=== PATIENT | male | born 1955 | race Caucasian/White ===

== ENCOUNTER → 2023-04-23 11:26 | Outpatient (BNVA) | payer MEDICARE, SELFPAY | PROVIDERS: PCP Family Medicine; Visit Provider Internal Medicine Cardiovascular Disease | DX: R07.9 Chest pain, unspecified (principal); I25.118 Atherosclerotic heart disease of native coronary artery with other forms of angina pectoris; R06.02 Shortness of breath; I45.10 Unspecified right bundle-branch block; Z95.0 Presence of cardiac pacemaker; J44.9 Chronic obstructive pulmonary disease, unspecified; E78.5 Hyperlipidemia, unspecified; E11.9 Type 2 diabetes mellitus without complications; I65.29 Occlusion and stenosis of unspecified carotid artery | CPT/HCPCS: 93005; 99205 ==

== ENCOUNTER 2023-05-09 06:01 | Outpatient (CLI) | payer MEDICARE, MEDICAID, SELFPAY ==
--- NOTE | 2023-05-09 06:15 | USCV_ITS ---
Britton Yunier Age: 67 Gender: M : 1955 Exam Date: 05/09/2023 06:34 Ordering Phys: Charli Parks MD ([email or web address]) Technologist: RENETTA Exam Location: [facility] [place] Indication: Bruit Risk Factors: Unknown Previous Vascular Surgery: STENTS AND PACER Right Brachial BP: / Left Brachial BP: / Right Left Velocity (cm/s) Spectral Plaque Velocity (cm/s) Spectral Plaque Syst/Diast Broadening Syst/Diast Broadening 100.30/32.00 Prox CCA 83.90 / 28.40 79.40/ 19.80 Mid CCA 62.50 / 18.30 93.50/ 27.00 Distal CCA 52.10 / 12.90 77.30/ 26.10 Hetro Prox ICA 108.20/ 36.40 Hetro 71.00/ 23.40 Mid ICA 108.20/ 36.40 54.40/ 19.80 Distal ICA 63.30 / 18.80 160.10 ECA 77.90 0.97 ICA/CCA 1.73 Antegrade Vertebral Antegrade 51.10/ 16.50 cm/s 43.90/ 14.40 cm/s Bi Subclavian Bi 107.7 115.0 0 0 FINDINGS Moderate heterogenous irregular plaques at the bifurcations and proximal internal carotid arteries bilaterally Intimal thickening in the common carotid arteries bilaterally. Antegrade flow in the vertebral arteries bilaterally. Normal Doppler velocities in the subclavian and vertebral arteries Elevated Doppler flow velocity with, color flow turbulence at the proximal external carotid artery on the right side CONCLUSIONS Moderate heterogenous irregular plaques at the bifurcations and proximal internal carotid arteries bilaterally with Doppler features suggesting less than 50% stenosis. Elevated velocity in the proximal external carotid artery on the right side with a color flow turbulence, suggesting hemodynamically significant stenosis No significant stenosis in the vertebral and subclavian arteries bilaterally, based on the above finding Dr Charli Parks MD [facility] (Electronically Signed) Final Date: 09 May 2023 19:20 S
--- NOTE | 2023-05-09 06:45 | USCV_ITS ---
Yunier Britton Age: 67 Gender: M : 1955 Exam Date: 05/09/2023 06:12 Ordering Phys: Charli Parks MD ([email or web address]) Technologist: RENETTA Exam Location: [facility] Indication: ASHD stents and pacers BP: / HR: 64 Rhythm: Sinus Technical Quality: Adequate MEASUREMENTS (Male / Female) Normal Values 2D ECHO LV Diastolic Diameter PLAX 5.4 cm 4.2 - 5.9 / 3.9 - 5.3 cm LV Systolic Diameter PLAX 5.3 cm LV Chamber Size 4.4 cm IVS Diastolic Thickness 1.0 cm 0.6 - 1.0 / 0.6 - 0.9 cm IVS Systolic Thickness 1.2 cm LVPW Diastolic Thickness 1.3 cm 0.6 - 1.0 / 0.6 - 0.9 cm LVPW Systolic Thickness 1.0 cm RV Chamber Size 2.9 cm LVOT Diameter 2.0 cm LV Ejection Fraction 2D Teich 25.7 % LV Ejection Fraction MOD 2C 58.6 % LV Ejection Fraction 2C AL 58.1 % LA Diameter 4.6 cm LA Width 3.8 cm LA Height 4.0 cm RA Width 4.1 cm RA Height 4.1 cm Aorta at Sinotubular Diameter 3.2 cm IVC Diameter 1.9 cm M-MODE Aortic Annulus Diameter 3.4 cm LA Ao Ratio MM 1.6 MV E Point Septal Separation 0.6 cm DOPPLER AV Peak Velocity 165.0 cm/s LVOT Peak Velocity 110.0 cm/s AV Area Cont Eq vti 1.9 cm squared AV Area Cont Eq pk 2.1 cm squared MV Area PHT 3.2 cm squared Mitral E to A Ratio 0.9 MV E' Velocity 39.0 cm/s Mitral E to MV E' Ratio 8.7 Mitral E to LV E' Lateral Ratio 7.7 Mitral E to LV E' Septal Ratio 10.3 TR Peak Velocity 166.4 cm/s TR Peak Gradient 11.1 mmHg TR Mean Velocity 176.4 cm/s TR Mean Gradient 13.1 mmHg TR Velocity Time Integral 60.3 cm TV Peak E Velocity 61.0 cm/s Right Atrial Pressure 3.0 mmHg Pulmonary Artery Systolic Pressu 14.1 mmHg RV Acceleration Time 0.1 s RV Ejection Time 0.3 s RV AcT/ET 0.4 FINDINGS Left Ventricle Normal left ventricular size and systolic function, EF 66 %. No regional wall motion abnormalities. Grade I/IV diastolic dysfunction (abnormal relaxation filling pattern), normal to mildly elevated filling pressures. Right Ventricle The right ventricle is normal in size and function. Right Atrium Mildly increased right atrial size. Left Atrium Mildly increased left atrial size. Mitral Valve Thickened mitral valve. Aortic Valve Thickened aortic valve. Mild calcification of the noncoronary cusp of the aortic valve Tricuspid Valve No gross abnormalities noted Pulmonic Valve Pulmonic valve not well visualized. Pericardium Normal pericardium without effusion. Aorta Normal ascending aorta dimension. IVC Normal IVC dimension with <50% respiratory change of the inferior vena cava. CONCLUSIONS Normal left ventricular size and systolic function, EF 66 %. No regional wall motion abnormalities. Grade I/IV diastolic dysfunction (abnormal relaxation filling pattern), normal to mildly elevated filling pressures. Mild biatrial enlargement Thickened aortic valve. Mild calcification of the noncoronary cusp of the aortic valve. Thickened mitral valve Normal IVC dimension with <50% respiratory change of the inferior vena cava. No similar previous studies are available for comparison Dr Charli Parks MD [facility] (Electronically Signed) Final Date: 09 May 2023 17:09 S
== END 2023-05-09 06:02 | disposition home or self-care (01) ==
LOC: RAD 06:02
PROVIDERS: PCP Family Medicine; Visit Provider Internal Medicine Cardiovascular Disease
DX: I25.118 Atherosclerotic heart disease of native coronary artery with other forms of angina pectoris (principal); I77.9 Disorder of arteries and arterioles, unspecified; R06.09 Other forms of dyspnea; I51.7 Cardiomegaly; I35.8 Other nonrheumatic aortic valve disorders; I34.9 Nonrheumatic mitral valve disorder, unspecified; I65.23 Occlusion and stenosis of bilateral carotid arteries
CPT/HCPCS: 93306; 93880

== ENCOUNTER 2023-06-04 07:04 | Outpatient (CLI) | payer MEDICARE, MEDICAID, SELFPAY ==
--- NOTE | 2023-06-04 | ECG_ITS ---
[facility] Test Date: 2023-06-04 Pat Name: Yunier Britton Department: Room: Gender: Male Petrologist: Dwain Newman : 1955 Requested By: Charli Parks Order Number: [id number] Thalia MD: Charli Parks M.D. Interpretive Statements NAME OF STUDY: LEXISCAN SESTAMIBI STRESS TEST INDICATION: Cp/fatigue/ashd, PROCEDURE: At the baseline, the EKG revealed normal sinus rhythm with a right bundle branch block. Left anterior physical block. Some nonspecific T wave changes. Possible old inferior wall [place]. Poor R wave progression.. The baseline heart was 65 bpm with a blood pressue of 124/71 mm of Hg Lexiscan was infused over a period of 20 seconds. A total of 0.4 milligrams of Lexiscan was infused. The stress phase was continued for a total of 5 minutes. Heart rate 80-bpm with a blood pressure 97/56 mm of Hg. The EKG at the peak infusion revealed no significant changes. Sestamibi was injected 20 seconds after the Lexiscan infusion. Heart rate at the end of the recovery phase was 77 bpm with a blood pressure of 104/63 mm of Hg. CONCLUSION: 1. No significant EKG changes with the LexiScan infusion 2. No LexiScan induced chest pain or cardiac arrhythmia 3. Normal blood pressure and heart rate response 4. Sestamibi/sestamibi perfusion scan pending; see separate report. Electronically Signed On 06-07-2023 23:27:44 CDT by Charli Parks M.D. [email or web address]
[2023-06-04 07:58] VITALS: BMI 28.8
--- NOTE | 2023-06-04 08:00 | NMCV_ITS ---
NM gigi perf SPECT r/s* [id number] Yunier Britton Age: 67 Gender: M : 1955 Exam Date: 06/04/2023 08:23 Ordering Phys: Charli Parks MD ([email or web address]) Technologist: KINSEY Reid Exam Location: [facility] Indications: CORONARY ANGIOPLASTY STATUS, ATHEROSCLEROTIC HEART DISEASE STRESS TEST Please see separate stress test report in [facility] for full findings IMAGE PROTOCOL Rest/Stress 1 Lexiscan Day Radiopharmaceutical Dose (mCi) Administration Site Administered by Rest: Tc-99m 10.5 IV KINSEY Reid Sestamibi Stress:Tc-99m 32.9 IV KINSEY Townsend Sestamibi Rest: 04-Jun-2023 60 Discovery 630 Stress: 04-Jun-2023 30 Discovery 630 0.4mg Lexiscan. Images obtained in supine and prone position. SPECT RESULTS Technical Quality: Excellent Raw Data Analysis: Normal Image Corrections: No attenuation or motion correction applied Summed Stress Score: 3 Summed Rest Score: 7 Summed Difference Score: 0 PERFUSION FINDINGS Small to moderate area of slightly decreased tracer uptake was, inferolateral and apical regions noted in the inferior and inferolateral regions. No significant reversibility was noted in these regions. FUNCTIONAL RESULTS (calculated via Gated SPECT) Stress Image LV EF (%): 50 Stress EDV (mL):121 TID: 0.93 Stress ESV (mL):60 FUNCTIONAL FINDINGS: Segmental wall motion analysis revealed mild diffuse hypokinesia of the septum IMPRESSIONS 1. Myocardial perfusion imaging revealing small to moderate area of slightly decreased persistent tracer uptake in the inferior, inferolateral and apical regions, suggesting myocardial scarring versus attrition artifact 2. Normal LV ejection fraction of 50%. 3. LV wall motion analysis revealing mild diffuse hypokinesia of the septum. 4. Mildly dilated LV cavity, end-systolic volume of 60 ml Low probability for coronary ischemia, based on the above findings Dr Charli Parks MD [facility] (Electronically Signed) Final Date: 04 June 2023 19:46 S
[2023-06-04] MEDS: regadenoson 0.4 Mg/5 ml Syringe IVP (08:59)
[2023-06-04 09:16] VITALS: BP 104/63; PULSE 77
== END 2023-06-04 07:05 | disposition home or self-care (01) ==
LOC: CDL 07:05
PROVIDERS: PCP Family Medicine; Visit Provider Internal Medicine Cardiovascular Disease
DX: I25.10 Atherosclerotic heart disease of native coronary artery without angina pectoris (principal); R07.9 Chest pain, unspecified; R53.83 Other fatigue
CPT/HCPCS: 36415; 78452; 93017; 96374; A9500; J2785

== ENCOUNTER → 2023-08-13 10:44 | Outpatient (BNVA) | payer MEDICARE, SELFPAY | PROVIDERS: PCP Family Medicine; Visit Provider Internal Medicine Cardiovascular Disease | DX: R06.02 Shortness of breath (principal); Z95.0 Presence of cardiac pacemaker; I25.118 Atherosclerotic heart disease of native coronary artery with other forms of angina pectoris; J44.9 Chronic obstructive pulmonary disease, unspecified; E78.2 Mixed hyperlipidemia; E11.9 Type 2 diabetes mellitus without complications; Z79.84 Long term (current) use of oral hypoglycemic drugs | CPT/HCPCS: 99214 ==

== ENCOUNTER 2023-08-16 11:13 | Outpatient (CLI) | payer MEDICARE, SELFPAY ==
[2023-08-16 11:55] LABS: Blood Urea Nitrogen 16 mg/dL (8-23); Calcium 9.8 mg/dL (8.5-10.5); Carbon Dioxide 27 mmol/L (22-29); Chloride 101 mmol/L (98-107); Glomerular Filtration Rate 59.9 mL/min (90-130); Glucose 229 mg/dL (65-115); NT Pro B Type Natriuretic Pept 135 pg/mL (0-125); Osmolality Calculated 298 mOsm/kg (285-295); Sodium 140 mmol/L (136-145)
== END 2023-08-16 11:14 | disposition home or self-care (01) ==
LOC: LAB 11:15
PROVIDERS: PCP Family Medicine; Visit Provider Internal Medicine Cardiovascular Disease
DX: R06.02 Shortness of breath (principal); I25.10 Atherosclerotic heart disease of native coronary artery without angina pectoris
CPT/HCPCS: 36415; 80048; 83880

== ENCOUNTER → 2024-02-12 09:36 | Outpatient (BNVA) | payer MEDICARE, SELFPAY | PROVIDERS: PCP Family Medicine; Visit Provider Internal Medicine Cardiovascular Disease | DX: I25.118 Atherosclerotic heart disease of native coronary artery with other forms of angina pectoris (principal); I65.23 Occlusion and stenosis of bilateral carotid arteries; Z95.0 Presence of cardiac pacemaker; E11.9 Type 2 diabetes mellitus without complications; E78.2 Mixed hyperlipidemia; Z79.84 Long term (current) use of oral hypoglycemic drugs; I10 Essential (primary) hypertension | CPT/HCPCS: 99214 ==

== ENCOUNTER → 2024-08-19 10:08 | Outpatient (BNVA) | payer MEDICARE, SELFPAY | PROVIDERS: PCP Family Medicine; Visit Provider Internal Medicine Cardiovascular Disease | DX: I25.10 Atherosclerotic heart disease of native coronary artery without angina pectoris (principal); E78.2 Mixed hyperlipidemia; Z95.0 Presence of cardiac pacemaker; I65.23 Occlusion and stenosis of bilateral carotid arteries; E11.9 Type 2 diabetes mellitus without complications; J44.9 Chronic obstructive pulmonary disease, unspecified; Z87.891 Personal history of nicotine dependence; Z79.84 Long term (current) use of oral hypoglycemic drugs; I10 Essential (primary) hypertension | CPT/HCPCS: 99214 ==

== ENCOUNTER → 2025-02-23 09:34 | Outpatient (BNVA) | payer MEDICARE, SELFPAY | PROVIDERS: PCP Family Medicine; Visit Provider Nurse Practitioner Family | DX: I25.10 Atherosclerotic heart disease of native coronary artery without angina pectoris (principal); I65.23 Occlusion and stenosis of bilateral carotid arteries; E11.9 Type 2 diabetes mellitus without complications; Z79.84 Long term (current) use of oral hypoglycemic drugs; E78.5 Hyperlipidemia, unspecified; J44.9 Chronic obstructive pulmonary disease, unspecified; G47.00 Insomnia, unspecified; Z95.0 Presence of cardiac pacemaker; Z87.891 Personal history of nicotine dependence; I10 Essential (primary) hypertension | CPT/HCPCS: 99214 ==

== ENCOUNTER → 2025-07-10 08:12 | Outpatient (BNVA) | payer MEDICARE, SELFPAY | PROVIDERS: PCP Family Medicine; Visit Provider Internal Medicine Cardiovascular Disease | DX: E78.5 Hyperlipidemia, unspecified (principal); E11.9 Type 2 diabetes mellitus without complications; Z79.84 Long term (current) use of oral hypoglycemic drugs; J96.11 Chronic respiratory failure with hypoxia; Z99.81 Dependence on supplemental oxygen; I25.118 Atherosclerotic heart disease of native coronary artery with other forms of angina pectoris; I10 Essential (primary) hypertension; I65.29 Occlusion and stenosis of unspecified carotid artery; Z95.5 Presence of coronary angioplasty implant and graft; Z95.0 Presence of cardiac pacemaker; Z87.891 Personal history of nicotine dependence; R07.9 Chest pain, unspecified; R58 Hemorrhage, not elsewhere classified; I27.20 Pulmonary hypertension, unspecified | CPT/HCPCS: 80048; 85025; 85610; 93005; 99214 ==

== ENCOUNTER → 2025-07-28 09:17 | Outpatient (BNVA) | payer MEDICARE, SELFPAY | PROVIDERS: PCP Family Medicine; Visit Provider Podiatrist Foot & Ankle Surgery | DX: E11.42 Type 2 diabetes mellitus with diabetic polyneuropathy (principal); L60.3 Nail dystrophy; E11.8 Type 2 diabetes mellitus with unspecified complications; G62.9 Polyneuropathy, unspecified | CPT/HCPCS: 11721; 99203 ==

== ENCOUNTER 2025-08-10 07:13 | Outpatient (CLI) | payer MEDICARE, SELFPAY ==
[2025-08-10] VITALS (31 sets, daily range): BP systolic 104–169; BP diastolic 61–98; PULSE 58–86; RESP 13–25; TEMP 36.7–37.1; O2SAT 94–100; BMI 25.8
--- NOTE | 2025-08-10 07:30 | XACV_ITS ---
Exam Room: 2 Ht: 178 cm Wt: 82 kg BSA: 2.02 m2 Gender: Male : 1955 Any Known Allergies: No known allergies Exam Priority: Routine Procedure(s): Procedure Description: Diagnostic procedure Procedure Description: PCI procedure Procedure Description: Left Heart Catheterization Procedure Description: Right Heart Catheterization Procedure Description: Left ventriculography Procedure Description: O2 saturation Procedure Description: Drug Eluting Coronary Stent Procedure Description: PTCA Procedure Description: Miscellaneous Procedure Description: ACT Procedure Description: Coronary Angiography Des HECTOR; Diagnostic Cath Status: Elective Diagnostic Findings * Left Main has no disease. * Left Anterior Descending has no disease. * Proximal Right Coronary Artery to Distal Right Coronary Artery: total occlusion, ZULAY: 0 flow. * Mid Circumflex: severe 90% stenosis, ZULAY: 3 flow. * Coronary angiography shows right dominance. PCI Indication: New Onset Angina <= 2 months Interventional Findings * Mid Circumflex: 90% stenosis treated with a AB TREK 2.50X15 RX BALLOON, ROJAS York ODIN 3.0X18 FERNANDO, and MDCase JOHNSON EUPHORA RX [id number] BALLOON. 0% residual stenosis, ZULAY: 3 flow. Conclusions 1. There is total occlusion coronary artery disease with two vessel disease. 2. Normal left ventricular systolic function. Ejection fraction of 55%. 3. Mid Circumflex was treated with a Balloon, Drug Eluting Stent, and Balloon. 4. Left main: Normal LAD has luminal irregularity without significant stenosis Left circumflex has distal high-grade severe 90% in-stent restenosis it is a culprit vessel RCA is chronically occludedPCI to distal left circumflex treated with balloon angioplasty followed by drug-eluting stent postdilated with noncompliant balloon., RCA is chronically occluded it will be managed medicallyRight heart catheterization was performed which showed normal wedge and pulmonary pressure Left ventricular ejection fraction is 55%. Recommendations * 1-Return to inpatient for close monitoring and routine cath care 2-Risk factor modification for secondary prevention 3-Statin and aspirin 81 mg life-long, if tolerated 4-Patient was pre-loaded with 600 mg of Plavix, continue Plavix 75mg p.o. daily for at least one year. We will assess at the end of one year again to continue if further or not 5-Continue optimal medical management 6-Follow up with Dr. Nunes in four weeks and your primary care in 10 days. Diagnostic RX Recommendation: PCI w/o planned CABG Ventriculography Ejection Fraction: 55.0 % Pressures Phase:Rest AO : 104 / 65 ( 84 ) @ 9:09:00 AM 139 / 66 ( 95 ) @ 9:24:00 AM 118 / 59 ( 83 ) @ 9:31:00 AM 120 / 66 ( 90 ) @ 9:42:00 AM 129 / 54 ( 85 ) @ 9:48:00 AM 133 / 56 ( 86 ) @ 9:48:00 AM LV : 140 / -9 / 5 @ 9:47:00 AM 133 / 57 / 131 @ 9:48:00 AM 137 / -10 / 10 @ 9:48:00 AM RV : 38 / 1 / 7 @ 8:53:00 AM PA : 41 / 14 ( 23 ) @ 8:52:00 AM RA : a wave = 11 v wave = 11 mean = 8 @ 8:55:00 AM PCW : a wave = 12 v wave = 12 mean = 10 @ 8:53:00 AM O2 Content Phase:Rest PA : O2 Content O2: 68.8 @ 9:09:00 AM Saturations Phase:Rest AO : 96 @ 9:42:00 AM RA : 71 @ 9:31:00 AM RV : 71 @ 9:24:00 AM PA : 69 @ 9:09:00 AM Cardiac Output Phase:Rest Mason : 4 @ 9:56:20 AM Mason Cardiac Index: 2 @ 9:56:20 AM Flow Phase:Rest Qp : 4 @ 9:56:20 AM Qs : 5 @ 9:56:20 AM Valves Phase:DefaultPhase AV : 0.0 @ 9:56:20 AM 0.0 @ 9:56:20 AM AV Mean Gradient: 0.0 @ 9:56:20 AM AV Flow: 706 @ 9:56:20 AM Clinical Evaluation EBL: 5mL-10mL Procedural Details Pre-Procedure Time Out. Identified patient by full name and date of as verbalized by the patient/guarantor. Does the consent match the physician's order: Yes. Accurate & Complete Informed Consent: Yes. Inpatient/Outpatient History & Physical on Chart: Yes. If H&P is completed, is and addenduem needed: No; If yes, is the addendum complete: N/A. Visualize and Verify Site with Patient/Guarantor: N/A. Relevant Radiology Images available: Yes. Pre-op teaching completed and patient verbalized understanding. The risks, benefits, and alternatives of sedation and/or procedure were discussed by physician. The patient agrees to continue. Procedure started. [facility] Clinical Fraility Score: 4: Vulnerable. Compensation Expert Indications: Other. Chest Pain Symptom Assessment: Atypical Angina. Correct patient, site and procedure confirmed by cath team. PERRLA. Strong, equal hand supervisor white sugar bilaterally. Lungs clear x 5 lobes. IV Site on Arrival: 20 gauge in the left forearm. IV Site on Arrival: 20 gauge in the right anticubital. IV Fluids: 0.9% NaCl at KVO. 0 mL infused prior to chemical processing laborer. Pre Procedural Pulses: bilateral dorsalis pedis was 3+. Pre Procedural Pulses: bilateral posterior tibial was 3+. Pre Procedural Pulses: bilateral radial was 3+. Oxygen started at 2liters/min via nasal canula. right groin was prepped with chloroprep then draped in the usual sterile fashion. right radial was prepped with chloroprep then draped in the usual sterile fashion. right brachial was prepped with chloroprep then draped in the usual sterile fashion. Baseline sample Acquired. HR: 50 BPM. Physician arrived. Physician scrubbed in. Immediate Pre-Procedure Time Out. Correct Patient: Yes; Correct Procedure: Yes; Correct Site: Yes; Correct Patient Position: Yes; Correct Supplies: Yes; Dried Flammable Prep: Yes; Blood Products Available: N/A;. Lidocaine 1% infiltrated to the right brachial. Wire inserted through the right brachial IV catheter. IV catheter removed OTW. Chazy-Viraj MON catheter inserted. 0.025 wire inserted through the Chazy catheter. Wire out. Pressure measurements obtained. ABG drawn and sent with respiratory therapy. Lidocaine 1% infiltrated to the right radial. Arterial access obtained. AO saturation drawn. A 5 icelandic Figueroa catheter in over wire. RHC samples given to RT to run at this time. Unable to engage catheter. Figueroa catheter out over the wire. A 5 icelandic JL4 catheter in over wire. Multiple views taken of left coronary artery. Radial access aborted d/t tortuosity. A TR Band was successful obtaining hemostatsis at the Right Radial artery insertion site. Catheter out. Lidocaine 1% infiltrated to the right groin. Arterial access obtained with micropuncture set. Lidocaine 1% infiltrated to the right groin. A 5 icelandic JR4 catheter in over wire. Multiple views taken of right coronary artery. Catheter removed over the standard wire. 6 icelandic XB 3.5 guide catheter was inserted over the wire. ACT drawn. Results 356 seconds. Therapeutic limits - pre-heparin administration 90-150 seconds and monitoring heparin during a vascular procedure >250 seconds. Runthrough guidewire was advanced through the guide catheter to lesion in the distal Circ. Inflation number : 1 A AB TREK 2.50X15 RX BALLOON was prepped and advanced across the Dist CX , then inflated to 14 SANDIE for 0:13 seconds. Inflation number: 2 The AB TREK 2.50X15 RX BALLOON was reinflated across the Dist CX, to 14 SANDIE for 0:16 seconds. Balloon out. Inflation Number : 3 A MDT R ODIN 3.0X18 FERNANDO -Lot Number# _[id number] EXP: 08/19/2027 was prepped and advanced across the Dist CX. The stent was deployed at 14 SANDIE for 0:21 seconds. Stent balloon out over wire. Inflation number : 4 A MDT NC EUPHORA RX 3.38T57PM BALLOON was prepped and advanced across the Dist CX , then inflated to 14 SANDIE for 0:21 seconds. Inflation number: 5 The MDT NC EUPHORA RX 3.33Z74PY BALLOON was reinflated across the Dist CX, to 16 SANDIE for 0:18 seconds. Inflation number: 6 The MDT NC EUPHORA RX 3.01Q73AL BALLOON was reinflated across the Dist CX, to 16 SANDIE for 0:18 seconds. Balloon out. Results checked. Wire out. Guide catheter out. A 5 icelandic Angled Pig catheter in over wire. ACT drawn. Results 226 seconds. Therapeutic limits - pre-heparin administration 90-150 seconds and monitoring heparin during a vascular procedure >250 seconds. EDP Sample taken: LV 140/-10,5; HR: 61 BPM; SpO2: 98%. LV gram performed in SILVA @ 10 mL/second for a total of 30 mL. EDP Sample taken: LV 133/57,131; HR: 126 BPM; SpO2: 97%. Pullback taken: LV 137/-11,10; AO 129/54(85); Mean: 0mmHg, Peak to Peak: 0mmHg, SEP: 6sec/min; HR: 80 BPM; SpO2: 97%. Catheter removed over the exchange wire. A Right femoral angiogram was performed to determine safe placement of closure device. A Manual Compression was successful obtaining hemostatsis at the Right Brachial Vein insertion site. A Suture was successful obtaining hemostatsis at the Right Femoral artery insertion site. Vital chart was stopped. Sheath(s) sutured into position with 2-0 silk and sterile 4x4's and Op-site applied over the site. No oozing or signs and symptoms of hematoma noted. Arterial sheath flushed and connected to tranducer and pressure bag with heparinized saline. Post Procedure: Pulses reassessed and unchanged. PERRLA. Strong, equal hand supervisor white sugar bilaterally. No VTE prophylaxis required. Medication's Wasted: Lidocaine 1% = 10 mL. Medication's Wasted: Other = Fentanyl 75mcg Versed 1 mg. Medication's Wasted: Heparin = 3000 units. Total IV fluids: 100 mL. Post-op diagnosis: Stent to CX. Complications: None. Estimated blood loss: 5mL-10mL. Responsiveness - Normal response to verbal stimuli; alert and oriented, PERRLA. Airway - Unaffected, no intervention required; spontaneous ventilation. Circulation: W/N/L, pulses unchanged. Nausea/Vomiting: No. Procedure completed. Patient transferred by stretcher to CPRU. Access Site Site: Right Brachial Vein Sheath Size: 6 Fr Hemostasis Method: Manual Compression Hemostasis Success: Successful Site: Right Radial artery Sheath Size: 6 Fr Hemostasis Method: TR Band Hemostasis Success: Successful Site: Right Femoral artery Sheath Size: 6 Fr Hemostasis Method: Suture Hemostasis Success: Successful Procedure Medications Start: 8:38 AM Stop: 8:38 AM Medication: Versed Amount: 1 mg Route: I.V. Start: 8:47 AM Stop: 8:47 AM Medication: Versed Amount: 1 mg Route: I.V. Start: 9:00 AM Stop: 9:00 AM Medication: Nitrogylcerin Amount: 200 mcg Route: I.A. Start: 9:02 AM Stop: 9:02 AM Medication: Heparin Amount: 5000 units Route: I.V. Start: 9:20 AM Stop: 9:20 AM Medication: Versed Amount: 1 mg Route: I.V. Start: 9:27 AM Stop: 9:27 AM Medication: Heparin Amount: 4000 units Route: I.V. Start: 9:49 AM Stop: 9:49 AM Medication: Plavix Amount: 600 mg Route: P.O. Start: 9:49 AM Stop: 9:49 AM Medication: Heparin Amount: 2000 units Route: I.V. I, the attending physician, have reviewed and verified all procedure medications. Yes, all medications given per verbal order History/Risk Factors Hypertension: Yes Dyslipidemia: Yes Peripheral Arterial Disease (PAD): No Myocardial Infarction (RI): No Obesity: No Renal Disease: No Tobacco Use: Never Prior Interventions PCI: No CABG: No Valve Surgery: No Report Signatures Finalized by Marbin Nunes MD on 08/22/2025 03:24 PM
--- NOTE | 2025-08-10 08:38 | W.PM.OPSFHP ---
Same Day Surgery H&P Indication for Procedure/HPI DATE OF PROCEDURE: August 10, 2025 CHIEF COMPLAINT/INDICATIONFOR SURGICAL PROCEDURE: Unexplained shortness of breath, unstable angina, pulmonary hypertension PREOP DIAGNOSIS: unexplained shortness of breath PLANNED PROCEDURE: Operation Date: 08/10/25 08:30 Proposed Procedures p Cardiac Catheterization - RL w/wo LV & Coros(Bilateral) - Marbin Nunes MD 70-year-old male past medical history significant for prior PCI prior multiple stents history of COVID pulmonary hypertension has worsening of shortness of breath along with chest pain on [id number] exertion, patient was evaluated by Dr. Navarro thought to be unstable angina like picture it is the reason patient has been referred to us for left and right heart catheterization. Medications/Allergies* Home Medications ?Medication ?Instructions ?Recorded ?Confirmed ?Type albuterol sulfate 90 mcg/actuation 1 inh inhalation QID 04/23/23 08/05/25 History aerosol inhaler atorvastatin 80 mg tablet 80 mg PO DAILY 04/23/23 08/05/25 History fenofibrate 150 mg capsule 150 mg PO DAILY 04/23/23 08/05/25 History fluticasone fur. 100 mcg-umeclid 1 inh inhalation DAILY 04/23/23 08/05/25 History 62.5 mcg-vilant 25 mcg inhalat.powder (Trelegy Ellipta) fluticasone propionate 50 1 spray intranasal DAILY 04/23/23 08/05/25 History mcg/actuation nasal spray,suspension (Allergy Relief (fluticasone)) pantoprazole 40 mg tablet,delayed 40 mg PO DAILY 04/23/23 08/05/25 History release Allergies/Adverse Reactions Allergy/AdvReac Type Severity Reaction Status Date / Time No Known Allergies Allergy Verified 08/10/25 08:08 Current Medications: Generic Name Dose Route Start Last Admin Trade Name Freq PRN Reason Stop Dose Admin Sodium Chloride 1,000 mls @ 50 mls/hr 08/10/25 07:30 08/10/25 08:10 Sodium Chloride 0.9% IV 08/11/25 03:29 Not Given .Q20H ONE Pertinent History/Comorbid Conditions* Medical History (Updated 07/28/25 @ 09:40 by Alexander Bess DPM) History of left heart catheterization COPD (chronic obstructive pulmonary disease) Hypertension Hyperlipidemia Type 2 diabetes mellitus Surgical History (Updated 07/10/25 @ 09:48 by Boom Navarro MD) S/P placement of cardiac pacemaker November 2021 Family History (Updated 04/23/23 @ 10:53 by Chiquita Starks, CLAUDE) Diabetes CAD (coronary artery disease) Dementia Hyperlipidemia Chronic kidney disease (CKD) Cancer Hypertension Denies family history of Stroke Social History Smoking and tobacco/nicotine status: former use of tobacco/nicotine (quit in 2009) Pertinent Exam Findings alert, oriented x 3, clear to auscultation bilaterally, regular rate & rhythm, operative site marked and procedure specific exam findings Conscious Sedation Assessment PATIENT ASSESSED PRIOR TO SEDATION, WITH NO CHANGE NOTED: Yes AIRWAY EVAL/ANESTHESIA PLAN: ASA II and Patient agrees to continue as planned Recommendations Surgery/Procedure today Other Plans: All risk-benefit and alternative for the procedure has been explained to the patient. Patient understand 2% risk of stroke major bleed. Patient restand 5% risk of minor bleeding bruising infection hematoma contrast-induced nephropathy urgent emergent vascular or bypass surgery. Patient fully understood and agrees to it Coding Level of Care Code Acute Code for Chg Fwd
[2025-08-10 09:10] LABS: Arterial Blood Gas Hematocrit 33.9 % (42-52); Blood Gas LPM 2.0 %; Blood Gas Operator Identificat AMH; Blood Gas Sample Site PA; Blood Gas Sample Type Not specified; Carboxyhemoglobin 0.9 %THgb (0.4-20.1); Methemoglobin 0.9 % (0.4-1.5)
[2025-08-10 09:21] LABS: Arterial Blood Gas Hematocrit 35.0 % (42-52); Arterial Blood Gas Hematocrit 36.6 % (42-52); Blood Gas LPM 2.0 %; Blood Gas Operator Identificat AMH; Blood Gas Sample Site RA; Blood Gas Sample Site RV; Blood Gas Sample Type Not specified; Carboxyhemoglobin 0.9 %THgb (0.4-20.1); Methemoglobin 0.9 % (0.4-1.5)
[2025-08-10 09:22] LABS: Arterial Blood Gas Hematocrit 31.1 % (42-52); Blood Gas LPM 2.0 %; Blood Gas Operator Identificat AMH; Blood Gas Sample Site AO; Blood Gas Sample Type Not specified; Carboxyhemoglobin 0.7 %THgb (0.4-20.1); Methemoglobin 1.1 % (0.4-1.5)
--- NOTE | 2025-08-10 09:58 | P.PCN_ITS ---
Procedure Note: Date of procedure: 08/10/25 Pre-procedure diagnosis: Unstable angina Post-procedure diagnosis: same Procedure: Left heart cath was performed Left main: Normal LAD has luminal irregularity without significant stenosis Left circumflex has distal high-grade severe 90% in-stent restenosis it is a culprit vessel RCA is chronically occluded PCI to distal left circumflex treated with balloon angioplasty followed by drug-eluting stent postdilated with noncompliant balloon., RCA is chronically occluded it will be managed medically Right heart catheterization was performed which showed normal wedge and pulmonary pressure Left ventricular ejection fraction is 55%. Plan: Patient has been loaded with 600 mg of Plavix and 325 mg of aspirin. Continue aspirin and Plavix for at least 1 more year after that we will reevalu ate Right radial band will be removed as per protocol Right groin sheath will be removed once PTT less than 45 with bedrest of 5 hours Resume home meds Patient can eat breakfast Full note to be dictated Coding Level of Care Code Acute Code for Maya Jewell
--- NOTE | 2025-08-10 10:00 | PC.NURSE ---
Received the patient back from the [facility] via bed s/p PCI of the CX. Patient drowsy but awakens easily to voice. A & 0 x 3. school lunch monitor placed and vital signs obtained. Right Femoral access site with 6 [place] sheath intact to pressure bag. Palpable distal pulses. TR band intact on the right radial access site. Palpable radial pulse. Bulky pressure dressing intact to the right brachial access site. No bleeding or hematoma noted. No other assessment changes noted from pre cath assessment. Family stepped out but was updated via telephone by Dr. Nunes. No concerns voiced at this time.
--- NOTE | 2025-08-10 11:00 | PC.NURSE ---
Letting the air out of the TR band per protocol. Bulky pressure dressing removed from the right brachial access site. No bleeding or hematoma noted. Daughter, Aleshia, now at bedside. No other assessment changes noted at this time.
[2025-08-10 12:33] LABS: Partial Thromboplastin Time 204.9 SECONDS (23.9-36.7)
[2025-08-10] MEDS: fentaNYL 50 mcg/mL INJ 2mL IVP (12:35)
--- NOTE | 2025-08-10 12:35 | PC.NURSE ---
Dr. Nunes at bedside. Angioseal placed in right femoral artery without incident. No bleeding or hematoma noted. Groin soft. Opsite applied to the site. The patient was premedicated with Fentanyl. See MAR. Right radial TR band off per protocol. Right wrist area cleansed with warm water and patted dry. A large band aid was applied to the site and loosely secured with coban. No bleeding or hematoma noted. Palpable radial pulse. Patient tolerated well.
[2025-08-11] VITALS (7 sets, daily range): BP systolic 94–134; BP diastolic 61–87; PULSE 69–87; RESP 9–24; TEMP 36.6–36.7; O2SAT 96–98
[2025-08-11 07:26] LABS: Hematocrit 39.8 % (37-53); Hemoglobin 12.40 g/dL (11.27-16.99); Mean Corpuscular HGB Conc 31.2 g/dL (30-55); Mean Corpuscular Hemoglobin 26.8 pg (27-33); Mean Corpuscular Volume 86.0 fl (82-101); Nucleated Red Blood Cells % 0 %; Platelet Count 258 10^3/cmm (157-399); Red Blood Count 4.63 10^6/uL (3.85-5.65); White Blood Count 8.87 10^3/uL (3.29-11.43)
[2025-08-11 07:50] LABS: Anion Gap 16.1 (5-19); Blood Urea Nitrogen 15 mg/dL (8-23); Calcium 9.5 mg/dL (8.5-10.5); Carbon Dioxide 29 mmol/L (22-29); Chloride 100 mmol/L (98-107); Creatinine Clr Calc Pharmacy 65.6464; Glucose 172 mg/dL (65-115); Osmolality Calculated 297 mOsm/kg (285-295); Potassium 4.1 mmol/L (3.5-5.1); Sodium 141 mmol/L (136-145)
--- NOTE | 2025-08-11 10:33 | P.DS_ITS ---
Discharge Providers Date of Admission: 08/10/2025 Date of Discharge: August 11, 2025 Attending Provider at Admission: Dr. Nunes Attending Provider at Discharge: Marbin Nunes MD Primary Care Provider: Blake Hernandez MD Reason for Visit Reason for Visit: I27.20 Brief History: Patient has a history of chronic hypoxic respiratory failure on 2 L of oxygen from COVID-pneumonia, PE, and COPD in 2019. Over the last month he had developed significant worsening of shortness of breath. He was admitted for few days in [facility] where they thought he may have mild pneumonia but his PCP thought it might be more cardiac in etiology. He was seen in the clinic by Dr. Navarro and had reported some anterior chest pressure which was new for him. Patient stated he previously had a history of 6 stents in 2011. He was set up for left and right heart cath. 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 He received PCI to the distal left circumflex treated with balloon angioplasty as well followed by drug eluting stent. RCA will be managed medically. He tolerated the procedure well without complications. Labs are within normal limits. Right radial cath site clean dry intact without signs of hematoma. He will be sent home on aspirin Plavix for at least 1 year. Physical Exam Narrative: General: No apparent distress, healthy appearing, well nourished HENMT: normoceophalic Neck: No carotid bruit bilaterally Muskuloskeletal: Full ROM Respiratory: Normal respiratory effort, clear to auscultation bilaterally throughout all lung marr, no use of accessory muscles Cardio: No JVD, regular rate, regular rhythm, S1 S2 normal, no murmurs, peripheral pulses 2+ radial palpated bilaterally GI: Normal to inspection, nondistended Extremities: Full ROM, normal, normal capillary refill, no cyanosis or edema Neuro: Alert and oriented x4, no focal motor deficits Psych: Affect normal, denies suicidal ideation, mental status grossly normal Skin: right radial cath site clean, dry, w/o s/s of hematoma Discharge Data Studies Completed and Pending Pending at discharge Category Date Time Status [employer] request for service Routine Exams 08/10/25 07:30 Taken Laboratory Results WBC 8.87 10^3/uL (3.29-11.43) 08/11/25 06:57 RBC 4.63 10^6/uL (3.85-5.65) 08/11/25 06:57 Hgb 12.40 g/dL (11.27-16.99) 08/11/25 06:57 Hct 39.8 % (37-53) 08/11/25 06:57 MCV 86.0 fl (82-101) 08/11/25 06:57 MCH 26.8 pg (27-33) L 08/11/25 06:57 MCHC 31.2 g/dL (30-55) 08/11/25 06:57 RDW 14.5 % (12.1-15.1) 08/11/25 06:57 Plt Count 258 10^3/cmm (157-399) 08/11/25 06:57 MPV 10.9 fL (7.4-10.4) H 08/11/25 06:57 Neut % (Auto) 75.2 % 08/11/25 06:57 Lymph % (Auto) 10.6 % 08/11/25 06:57 King % (Auto) 11.2 % 08/11/25 06:57 Eos % (Auto) 2.0 % 08/11/25 06:57 Baso % (Auto) 0.3 % 08/11/25 06:57 Neut # (Auto) 6.67 10^3/uL (1.8-7.7) 08/11/25 06:57 Lymph # (Auto) 0.9 10^3/uL (0.8-4.8) 08/11/25 06:57 King # (Auto) 1.0 10^3/uL (0.2-0.9) H 08/11/25 06:57 Eos # (Auto) 0.2 10^3/uL (0.0-0.8) 08/11/25 06:57 Baso # (Auto) 0.0 10^3/uL (0.0-0.1) 08/11/25 06:57 Nucleated RBC % (auto) 0 % 08/11/25 06:57 Nucleated RBCs # 0.0 /100WBC 08/11/25 06:57 APTT 204.9 SECONDS (23.9-36.7) H* 08/10/25 11:45 Specimen Type Not specified 08/10/25 09:05 Specimen Type Not specified 08/10/25 09:05 Specimen Type Not specified 08/10/25 09:05 Specimen Type Not specified 08/10/25 09:05 Sample Site Ao 08/10/25 09:05 Sample Site Pa 08/10/25 09:05 Sample Site Ra 08/10/25 09:05 Sample Site Rv 08/10/25 09:05 Neo Test N/a 08/10/25 09:05 Neo Test N/a 08/10/25 09:05 Neo Test N/a 08/10/25 09:05 Neo Test N/a 08/10/25 09:05 A-a O2 Gradient Not Reportable 08/10/25 09:05 A-a O2 Gradient Not Reportable 08/10/25 09:05 A-a O2 Gradient Not Reportable 08/10/25 09:05 A-a O2 Gradient Not Reportable 08/10/25 09:05 Hematocrit 31.1 % (42-52) L 08/10/25 09:05 Hematocrit 33.9 % (42-52) L 08/10/25 09:05 Hematocrit 35.0 % (42-52) L 08/10/25 09:05 Hematocrit 36.6 % (42-52) L 08/10/25 09:05 Hgb O2 Saturation 67.5 % (95-100) L 08/10/25 09:05 Hgb O2 Saturation 69.6 % (95-100) L 08/10/25 09:05 Hgb O2 Saturation 69.9 % (95-100) L 08/10/25 09:05 Hgb O2 Saturation 94.7 % (95-100) L 08/10/25 09:05 Carboxyhemoglobin 0.7 %THgb (0.4-20.1) 08/10/25 09:05 Carboxyhemoglobin 0.9 %THgb (0.4-20.1) 08/10/25 09:05 Carboxyhemoglobin 0.9 %THgb (0.4-20.1) 08/10/25 09:05 Carboxyhemoglobin 0.9 %THgb (0.4-20.1) 08/10/25 09:05 Methemoglobin 0.9 % (0.4-1.5) 08/10/25 09:05 Methemoglobin 0.9 % (0.4-1.5) 08/10/25 09:05 Methemoglobin 0.9 % (0.4-1.5) 08/10/25 09:05 Methemoglobin 1.1 % (0.4-1.5) 08/10/25 09:05 Total Hemoglobin 10.1 g/dL (14-18) L 08/10/25 09:05 Total Hemoglobin 11.0 g/dL (14-18) L 08/10/25 09:05 Total Hemoglobin 11.4 g/dL (14-18) L 08/10/25 09:05 Total Hemoglobin 12.0 g/dL (14-18) L 08/10/25 09:05 O2 Delivery Device Nc 08/10/25 09:05 O2 Delivery Device Nc 08/10/25 09:05 O2 Delivery Device Nc 08/10/25 09:05 O2 Delivery Device Mn 08/10/25 09:05 O2 Liters/Min 2.0 % 08/10/25 09:05 O2 Liters/Min 2.0 % 08/10/25 09:05 O2 Liters/Min 2.0 % 08/10/25 09:05 O2 Liters/Min 2.0 % 08/10/25 09:05 FiO2 28.0 % 08/10/25 09:05 FiO2 28.0 % 08/10/25 09:05 FiO2 28.0 % 08/10/25 09:05 FiO2 28.0 % 08/10/25 09:05 Ophthalmic Medical Assistant ID [facility] 08/10/25 09:05 Ophthalmic Medical Assistant ID [facility] 08/10/25 09:05 Ophthalmic Medical Assistant ID [facility] 08/10/25 09:05 Ophthalmic Medical Assistant ID [facility] 08/10/25 09:05 Sodium 141 mmol/L (136-145) 08/11/25 06:57 Potassium 4.1 mmol/L (3.5-5.1) 08/11/25 06:57 Chloride 100 mmol/L (98-107) 08/11/25 06:57 Carbon Dioxide 29 mmol/L (22-29) 08/11/25 06:57 Anion Gap 16.1 (5-19) 08/11/25 06:57 BUN 15 mg/dL (8-23) 08/11/25 06:57 Creatinine 1.1 mg/dL (0.7-1.2) 08/11/25 06:57 GFR Calculation Not Reportable 08/11/25 06:57 Glucose 172 mg/dL (65-115) H 12 06:57 Calculated Osmolality 297 mOsm/kg (285-295) H 08/11/25 06:57 Calcium 9.5 mg/dL (8.5-10.5) 08/11/25 06:57 Procedures Performed PCI to distal left circumflex treated with balloon angioplasty followed by drug- eluting stent postdilated with noncompliant balloon., RCA is chronically occluded it will be managed medically Right heart catheterization was performed which showed normal wedge and pulmonary pressure Left ventricular ejection fraction is 55%. Vitals Last Vital Signs Temp 98.0 F 08/11/25 07:39 Pulse 69 08/11/25 07:47 Resp 9 L 08/11/25 07:39 BP 134/87 08/11/25 07:39 Pulse Ox 98 08/11/25 07:47 O2 Del Method Nasal Cannula 08/11/25 07:47 O2 Flow Rate 1.5 08/11/25 07:47 Discharge Plan Discharge Patient Disposition: Home Prescriptions: New aspirin 81 mg Tablet,Delayed Release (Dr/Ec) 81 mg PO DAILY Qty: 90 3RF clopidogrel 75 mg tablet 75 mg PO DAILY Qty: 90 3RF Continued fenofibrate 150 mg capsule 150 mg PO DAILY Trelegy Ellipta 100-62.5-25 mcg blister with device 1 inh inhalation DAILY atorvastatin 80 mg tablet 80 mg PO DAILY pantoprazole 40 mg tablet,delayed release (DR/EC) 40 mg PO DAILY fluticasone propionate [Allergy Relief (fluticasone)] 50 mcg/actuation spray,suspension 1 spray intranasal DAILY Rx Instructions: administer into each nostril albuterol sulfate 90 mcg/actuation HFA aerosol inhaler 1 inh inhalation QID Jardiance 10 mg tablet 10 mg PO DAILY Qty: 90 3RF furosemide [Lasix] 40 mg tablet 40 mg PO DAILY Qty: 90 3RF vitamin B complex Capsule 1 cap PO DAILY Qty: 90 3RF Allergy Relief (cetirizine) 10 mg capsule 10 mg PO DAILY Qty: 90 0RF isosorbide mononitrate 30 mg tablet extended release 24 hr 30 mg PO DAILY Qty: 90 3RF Discontinued aspirin 325 mg tablet 325 mg PO DAILY Qty: 90 3RF Discharge Order = DC NOW: Discharge Order (Routine); Ordered 08/11/25 Ordered By: Madeleine Andersen Referrals: Fatemeh Ventura FNP [Nurse Practitioner, Cardiology] - 08/26/25 4:00 pm Blake Hernandez MD [Primary Care Provider] Diet: Regular and Cardiac Activity: Limit activity as instructed Patient Instructions: Coronary Angioplasty (DC), How to Stop Smoking (DC), Post Angiogram Home Care Instructions Activity Restrictions/Additional Instructions: Discussed with patient no heavy lifting more than a gallon of milk for 3 days. Monitor for and report signs or symptoms of bleeding. Monitor for and report s/s of infection such as fever 101 or greater, swelling, redness or pain to the wrist. Print Language: Frisian Discharge Attestations Time Spent in Discharge Care*: less than 30 min Quality Metrics Clinical Quality Measures [ No reported AMI, CVA or VTE this stay] Coding Level of Care Code Acute Code for Chg Best
--- NOTE | 2025-08-11 12:31 | PC.NURSE ---
This person to attempted to schedule pcp appointment. No answer for clinic X's 2.
== END 2025-08-11 11:25 | disposition home or self-care (01) ==
LOC: CCL 07:20 → CSU 16:18
PROVIDERS: PCP Family Medicine; Visit Provider Internal Medicine Cardiovascular Disease
DX: I25.10 Atherosclerotic heart disease of native coronary artery without angina pectoris (principal); I25.82 Chronic total occlusion of coronary artery; Z95.5 Presence of coronary angioplasty implant and graft; J44.9 Chronic obstructive pulmonary disease, unspecified; I10 Essential (primary) hypertension; E78.5 Hyperlipidemia, unspecified; E11.9 Type 2 diabetes mellitus without complications; Z87.891 Personal history of nicotine dependence
CPT/HCPCS: 36415; 80048; 82810; 85025; 85347; 85730; 93460; 99152; 99153; C1725; C1751; C1760; C1769; C1874; C1887; C1894; C9600; G0269; J1644; J2250; J3010; J3490; J7030; J9999; Q0163; Q9967

== ENCOUNTER → 2025-08-25 14:51 | Outpatient (BNVA) | payer MEDICARE, SELFPAY | PROVIDERS: PCP Family Medicine; Visit Provider Internal Medicine Cardiovascular Disease | DX: I25.10 Atherosclerotic heart disease of native coronary artery without angina pectoris (principal); E78.5 Hyperlipidemia, unspecified; I65.29 Occlusion and stenosis of unspecified carotid artery; E11.9 Type 2 diabetes mellitus without complications; J44.9 Chronic obstructive pulmonary disease, unspecified; I10 Essential (primary) hypertension; Z95.0 Presence of cardiac pacemaker; Z87.891 Personal history of nicotine dependence | CPT/HCPCS: 99214 ==